=== PATIENT | female | born 1960 | race Caucasian/White ===

== ENCOUNTER 2017-02-01 19:39 | Emergency (ER) | payer BC ==
[2017-02-01] MEDS ORDERED: BABY ASPIRIN 81 MG CHEW PO ONE (19:52)
[2017-02-01] MEDS ORDERED: Nitrostat 0.4 MG (ED) SL ONE ×2 (19:52→20:01)
[2017-02-01 20:00] LABS: BASOPHIL % 0.9 % (0.0-0.4); Eosinophil % 1.2 % (0.00-5.0); Granulocytes % 53.6 % (36.0-66.0); Lymphocytes % 38.3 % (24.0-44.0); Mean Cell Volume 89.9 fl (78-100); Mean Corpuscular Hemoglobin 29.8 pg (26-32); Mean Platelet Volume 10.4 fl (6-9.5); Platelet Count 397 K/mm3 (150-450); Red Blood Count 5.03 M/mm3 (4.1-5.4); Red Cell Distribution Width 12.8 % (11.5-14.0); White Blood Count 10.5 K/mm3 (4.0-10.5)
[2017-02-01] MEDS ORDERED: Sodium Chloride 0.9% 1000 ML 1,000 ML IV SCH (20:00)
--- NOTE | 2017-02-01 20:00 | ERPHSYRPT ---
- History of Present Illness Time Seen by Provider: 02/01/17 19:56 Historian: patient Exam Limitations: no limitations Patient Subjective Stated Complaint: Pt states for the last couple of days she has had a "flutter in her chest" and chest pain. The "flutter" happens randomly and when it happens she gets extremely dizzy and feels like she is going to pass out. Triage Nursing Assessment: Pt alert and oriented x3. skin pink warm and dry. afebrile. pt appears to be anxious. irregular heart beats noted on cardiac technologist Physician History: pt is 56 year old female with no known heart dx CP and dizziness past few days with PVCs and sinus pauses on monitor, no DM , no other symptoms nop fever, no cough no prior PE oe DVT; Tx cholesterol , now has elevated BP; Timing/Duration: day(s) Activities at Onset: none Quality: fullness, pressure Location: substernal Chest Pain Radiation: no radiation Severity of Pain-Max: moderate Severity of Pain-Current: moderate Modifying Factors: Improves With: nothing Associated Symptoms: nausea, palpitations, other (dizziness) Prior Chest Pain/Cardiac Workup: no prior chest pain, no prior cardiac workup Nitro Today/Relief: 0.4 mg x 1, provided by ED Aspirin Treatment Today: 325 mg x 1, provided by ED Allergies/Adverse Reactions: codeine Allergy (Verified 02/01/17 19:40) Swelling Home Medications: Esomeprazole Magnesium [Nexium] 40 mg PO DAILY 05/19/14 [History] Simvastatin [Zocor] 10 mg PO DAILY 05/19/14 [History] Fenofibrate,Micronized 145 mg* [Tricor 145 MG] 145 mg PO DAILY 02/01/17 [ History] Fish Oil/Dha/Epa [Fish Oil 1,200 mg Fish Oil] 1 each PO QAM 02/01/17 [History] Hx Tetanus, Diphtheria Vaccination/Date Given: Yes Hx Influenza Vaccination/Date Given: Yes Hx Pneumococcal Vaccination/Date Given: No Immunizations Up to Date: Yes - Past Medical History Pertinent Past Medical History: No Neurological History: No Pertinent History Cardiac History: High Cholesterol Respiratory History: No Pertinent History Musculoskeletal History: No Pertinent History GI Medical History: GERD History: No Pertinent History - Past Surgical History Past Surgical History: Yes Gastrointestinal: Appendectomy, Cholecystectomy Female Surgical History: Hysterectomy - Social History Smoking Status: Current every day smoker Exposure to second hand smoke: No Drug Use: none Patient Lives Alone: No - Nursing Vital Signs Temperature: 98.1 F Temperature Source: Oral Pulse Rate: 84 Respiratory Rate: 18 Pain Intensity: 3 - Physical Exam SpO2: 97 Oxygen Delivery: Room Air - Course Nursing assessment & vital signs reviewed: Yes EKG Interpreted by Me: Sinus Rhythm, NORMAL AXIS, Non-specific ST Changes, Other (pauses and PVCs on monitor) - Radiology Exams Chest X-ray Interpretation: Reviewed by me, Other (hazy left heart border) Ordered Tests: Active Orders 24 hr Category Date Time Status Graining Machine Operator STAT Care 02/01/17 19:52 Active Clean Catch Urine Specimen STAT Care 02/01/17 19:52 Active EKG-ER Only STAT Care 02/01/17 19:52 Active IV Insertion STAT Care 02/01/17 19:52 Active Pulse Oximetry (ED) STAT Care 02/01/17 19:52 Active CHEST 1 VIEW (PORTABLE) Stat Exams 02/01/17 19:53 Taken CBC W DIFF Stat Lab 02/01/17 19:45 Completed CK-Creatinine Phosphokinase Stat Lab 02/01/17 19:45 Completed CMP Stat Lab 02/01/17 19:45 Completed D-DIMER QUANTITATION Stat Lab 02/01/17 19:45 Completed Lactic Acid Urgent Lab 02/01/17 19:52 Completed TROPONIN Q3H Lab 02/01/17 19:45 Completed TROPONIN Q3H Lab 02/01/17 23:00 Ordered TROPONIN Q3H Lab 02/02/17 02:00 Ordered TROPONIN Q3H Lab 02/02/17 05:00 Ordered TROPONIN Q3H Lab 02/02/17 08:00 Ordered UA W/ MICROSCOPIC Stat Lab 02/01/17 19:53 Completed Medication Summary Generic Name Dose Route Start Last Admin Trade Name Freq PRN Reason Stop Dose Admin Sodium Chloride 1,000 mls @ 100 mls/hr 02/01/17 20:00 02/01/17 20:06 Sodium Chloride 0.9% 1000 Ml IV 03/03/17 19:59 100 mls/hr .Q10H EDD Administration Potassium Chloride 100 mls @ 50 mls/hr 02/01/17 21:26 02/01/17 21:31 Potassium Chloride 20 Meq In Water 100ml IV 02/01/17 23:25 50 mls/hr STAT ONE Administration Discontinued Medications Generic Name Dose Route Start Last Admin Trade Name Fernando PRN Reason Stop Dose Admin Aspirin 324 mg 02/01/17 19:52 02/01/17 20:06 Baby Aspirin 81 Mg Chew PO 02/01/17 19:53 324 mg STAT ONE Administration Aspirin Confirm 02/01/17 20:01 Baby Aspirin 81 Mg Chew Administered 02/01/17 20:02 Dose 324 mg .ROUTE .STK-MED ONE Sodium Chloride Confirm 02/01/17 20:01 Sodium Chloride 0.9% 1000 Ml Administered 02/01/17 20:02 Dose 1,000 mls @ ud .ROUTE .STK-MED ONE Potassium Chloride Confirm 02/01/17 21:29 Potassium Chloride 20 Meq In Water 100ml Administered 02/01/17 21:30 Dose 100 mls @ ud IV .STK-MED ONE Nitroglycerin 0.4 mg 02/01/17 19:52 02/01/17 20:06 Nitrostat 0.4 Mg (Ed) SL 02/01/17 19:53 0.4 mg STAT ONE Administration Nitroglycerin Confirm 02/01/17 20:01 Nitrostat 0.4 Mg (Ed) Administered 02/01/17 20:02 Dose 0.4 mg SL .STK-MED ONE Lab/Rad Data: Laboratory Result Diagrams 02/01/17 19:45 02/01/17 19:45 Laboratory Results 02/01/17 02/01/17 02/01/17 Range/Units 19:53 19:52 19:45 WBC (4.0-10.5) K/mm3 RBC (4.1-5.4) M/mm3 Hgb (12.0-16.0) gm/dl Hct (35-47) % MCV (78-100) fl MCH (26-32) pg MCHC (32-36) g/dl RDW (11.5-14.0) % Plt Count (150-450) K/mm3 MPV (6-9.5) fl Gran % (36.0-66.0) % Lymphocytes % (24.0-44.0) % Monocytes % (0.0-12.0) % Eosinophils % (0.00-5.0) % Basophils % (0.0-0.4) % Basophils # (0-0.4) D-Dimer (0.00-0.49) mg/L Sodium (136-145) mEq/L Potassium (3.5-5.1) mEq/L Chloride (98-107) mEq/L Carbon Dioxide (21-32) mEq/L Anion Gap (5-15) MEQ/L BUN (9-20) mg/dL Creatinine (0.55-1.30) mg/dl Estimated GFR ML/MIN Glucose (70-110) MG/DL Lactic Acid 1.2 (0.4-2.0) Calcium (8.5-10.1) mg/dL Total Bilirubin (0.2-1.0) mg/dL AST (15-37) U/L ALT (12-78) U/L Alkaline Phosphatase (46-116) U/L Creatine Kinase (26-192) U/L Troponin I < 0.017 (0.000-0.056) ng/ml Serum Total Protein (6.4-8.2) gm/dL Albumin (3.4-5.0) g/dL Ur Collection Type CLEAN CATCH Urine Color YELLOW (YELLOW) Urine Appearance CLEAR (CLEAR) Urine pH 6.5 (5-6) Ur Specific Dixon 1.010 (1.005-1.025) Urine Protein NEGATIVE (Negative) Urine Glucose (UA) NEGATIVE (NEGATIVE) mg/dL Urine Ketones NEGATIVE (NEGATIVE) Urine Nitrite NEGATIVE (NEGATIVE) Urine Bilirubin NEGATIVE (NEGATIVE) Urine Urobilinogen 0.2 (0-1) mg/dL Urine WBC (Auto) NEGATIVE (NEGATIVE) Urine RBC (Auto) TRACE NON-HEM (0-5) Tirso/ul Urine Microscopic RBC 0-2 (0-2) /HPF Ur Epithelial Cells RARE (FEW) /HPF Specimen Received 02/01/1702/01/17 02/01/17 02/01/17 Range/Units 19:45 19:45 19:45 WBC 10.5 (4.0-10.5) K/mm3 RBC 5.03 (4.1-5.4) M/mm3 Hgb 15.0 (12.0-16.0) gm/dl Hct 45.2 (35-47) % MCV 89.9 (78-100) fl MCH 29.8 (26-32) pg MCHC 33.2 (32-36) g/dl RDW 12.8 (11.5-14.0) % Plt Count 397 (150-450) K/mm3 MPV 10.4 H (6-9.5) fl Gran % 53.6 (36.0-66.0) % Lymphocytes % 38.3 (24.0-44.0) % Monocytes % 6.0 (0.0-12.0) % Eosinophils % 1.2 (0.00-5.0) % Basophils % 0.9 (0.0-0.4) % Basophils # 0.09 (0-0.4) D-Dimer 0.244 (0.00-0.49) mg/L Sodium 142 (136-145) mEq/L Potassium 3.4 L (3.5-5.1) mEq/L Chloride 105 (98-107) mEq/L Carbon Dioxide 26.2 (21-32) mEq/L Anion Gap 13.9 (5-15) MEQ/L BUN 11 (9-20) mg/dL Creatinine 0.86 (0.55-1.30) mg/dl Estimated GFR > 60 ML/MIN Glucose 115 H (70-110) MG/DL Lactic Acid (0.4-2.0) Calcium 9.3 (8.5-10.1) mg/dL Total Bilirubin 0.3 (0.2-1.0) mg/dL AST 23 (15-37) U/L ALT 30 (12-78) U/L Alkaline Phosphatase 83 (46-116) U/L Creatine Kinase 64 (26-192) U/L Troponin I (0.000-0.056) ng/ml Serum Total Protein 7.9 (6.4-8.2) gm/dL Albumin 4.3 (3.4-5.0) g/dL Ur Collection Type Urine Color (YELLOW) Urine Appearance (CLEAR) Urine pH (5-6) Ur Specific Dixon (1.005-1.025) Urine Protein (Negative) Urine Glucose (UA) (NEGATIVE) mg/dL Urine Ketones (NEGATIVE) Urine Nitrite (NEGATIVE) Urine Bilirubin (NEGATIVE) Urine Urobilinogen (0-1) mg/dL Urine WBC (Auto) (NEGATIVE) Urine RBC (Auto) (0-5) Tirso/ul Urine Microscopic RBC (0-2) /HPF Ur Epithelial Cells (FEW) /HPF Specimen Received - Progress Progress: improved, re-examined Air Movement: good Progress Note: 02/01/17 21:03 BP improve to normal ranges after NTG , relief now except when PVCs hit and then momentary CP; discussed with hospitalist Noreen Byers at [facility] for transfer,and they defferred to Dr. Abdiel Walker as that is the pts regualr ; they are calling ; ; 02/01/17 21:[address] Art and they will accept at [facility] and family and pt agree for transfer - further cardiac workup Blood Culture(s) Obtained: No Antibiotics given: No Discussed with DrMaria A: Other (Dr. Art) Will see patient in: hospital (full admit) Counseled pt/family regarding: lab results, diagnosis, need for follow-up, rad results - Departure Time of Disposition: 21:44 Departure Disposition: Transfer Clinical Impression: Syncope, near, Chest pain of uncertain etiology, PVC (premature ventricular contraction), Atrioventricular conduction disorder, mild hypokalemia Condition: Good Critical Care Time: No Referrals: MENDEL KANG [Primary Care Provider] -
[2017-02-01] MEDS ORDERED: Sodium Chloride 0.9% 1000 ML 1,000 ML ONE (20:01)
[2017-02-01] MEDS ORDERED: BABY ASPIRIN 81 MG CHEW ONE (20:01)
[2017-02-01 20:16] LABS: ALBUMIN 4.3 g/dL (3.4-5.0); ALKALINE PHOSPHATASE 83 U/L (46-116); ANION GAP 13.9 MEQ/L (5-15); BILIRUBIN,TOTAL 0.3 mg/dL (0.2-1.0); BLOOD UREA NITROGEN 11 mg/dL (9-20); CHLORIDE 105 mEq/L (98-107); Carbon Dioxide 26.2 mEq/L (21-32); Glucose 115 MG/DL (70-110); Potassium 3.4 mEq/L (3.5-5.1); SGOT/AST 23 U/L (15-37); SGPT/ALT 30 U/L (12-78); SODIUM 142 mEq/L (136-145); Total Protein 7.9 gm/dL (6.4-8.2)
[2017-02-01 21:04] LABS: Collection Type CLEAN CATCH
[2017-02-01 21:05] LABS: COMPLETE URINE MICROSCOPIC? YES; Epithelial Cells RARE /HPF (FEW); Ph 6.5 (5-6)
[2017-02-01] MEDS ORDERED: POTASSIUM CHLORIDE 20 mEq IN WATER 100ML 100 ML IV ONE ×2 (21:26→21:29)
[2017-02-01 21:44] VITALS: O2SAT 97
[2017-02-01] MEDS ORDERED: Magnesium 1 Gm / 100 Ml D5W*** 100 ML IV ONE ×2 (21:56→22:01)
[2017-02-01 22:21] VITALS: BP 132/79; PULSE 66
--- NOTE | 2017-02-02 08:52 | XRAY ---
Indication: Chest pain. Comparison: January 30, 2012. Portable chest remains hyperinflated and clear. Heart and mediastinal structures are stable and within normal limits for AP portable technique. Bony thorax intact. Impression: Stable nonacute hyperinflated chest.
== END 2017-02-01 22:45 | disposition short-term general hospital (02) ==
LOC: ED 19:39
DX: R07.9 Chest pain, unspecified (principal); I49.3 Ventricular premature depolarization; I45.89 Other specified conduction disorders; E87.6 Hypokalemia; E83.42 Hypomagnesemia; R11.0 Nausea; R00.2 Palpitations
CPT/HCPCS: 36000; 36415; 71010; 80053; 81000; 82550; 83605; 83735; 84484; 85025; 85379; 93005; 93041; 96360; 96361; 96365; 96366; 96367; 99285; J3475; J3480; A9270-GY

== ENCOUNTER 2023-05-12 09:28 | Observation (INO) | payer BC ==
[2023-05-12] MEDS ORDERED: Sodium Chloride 0.9% 1000 ML 1,000 ML IV SCH (09:45)
[2023-05-12] MEDS ORDERED: TORAdol 30 mg Injection IV ONE (09:45)
[2023-05-12] MEDS ORDERED: TORAdol 30 mg Injection ONE (09:57)
--- NOTE | 2023-05-12 10:12 | XRAY ---
Indication: Abdomen and back pain. Multiple contiguous axial images obtained through the abdomen and pelvis without contrast. Comparison: April 17, 2020 Lung bases remain clear. Heart not enlarged. Noncontrasted stomach and bowel loops are nonobstructed. There remains mild scattered descending and sigmoid diverticulosis. Mid to distal sigmoid demonstrates recurrent moderate diverticulitis. Tiny free fluid but no walled off fluid collection or free air. Stable small left adrenal adenoma, splenic calcified granulomas, cholecystectomy, appendectomy, and hysterectomy. Remaining liver, pancreas, spleen, adrenal glands, kidneys, ureters, and bladder are unremarkable for noncontrast exam. Again moderate scattered aortoiliac calcifications without AAA. Osseous structures intact again with mild degenerative changes throughout the spine. Impression: 1. Again colonic diverticulosis with recurrent moderate acute sigmoid diverticulitis. No complications. 2. Stable benign left adrenal adenoma, splenic calcified granulomas, arteriosclerotic disease, and chronic bony findings.
[2023-05-12 10:17] LABS: BASOPHIL % 0.4 % (0.0-0.4); Basophil (Absolute #) 0.06 x10^3/uL (0-0.4); Eosinophil % 0.3 % (0.00-5.0); Eosinophil (Absolute #) 0.04 x10^3/uL (0-0.5); Hematocrit 42.7 % (35-47); IMMATURE GRAN # 0.05 x10^3u/L (0.00-0.03); IMMATURE GRAN % 0.3 % (0.00-0.4); Lymphocyte (Absolute #) 1.25 x10^3/uL (1.0-4.6); Lymphocytes % 8.6 % (24.0-44.0); Mean Cell Volume 90.9 fL (78-100); Mean Corpuscular Hemoglobin 29.8 pg (26-32); Mean Corpuscular Hgb Concent. 32.8 g/dL (32-36); Mean Platelet Volume 9.9 fL (7.5-11.0); Monocyte (Absolute #) 0.72 x10^3/uL (0.0-1.3); Neutrophil % 85.4 % (36.0-66.0); Platelet Count 357 x10^3/uL (150-450); Red Cell Distribution Width 12.8 % (11.5-14.0); White Blood Count 14.5 x10^3/uL (4.0-10.5)
[2023-05-12] MEDS ORDERED: SUBLIMAZE 100 MCG/2 ML IV ONE (10:31)
[2023-05-12] MEDS ORDERED: SUBLIMAZE 100 MCG/2 ML ONE (10:32)
[2023-05-12 10:33] LABS: ISTAT BUN 9 mg/dL (8-26); ISTAT CL 102 mmol/L (98-109); ISTAT CO2 25 mmol/L (24-29); ISTAT CREA 0.6 mg/dL (0.6-1.3); ISTAT GLUC 125 mg/dL (70-105); ISTAT K 3.9 mmol/L (3.5-4.9); ISTAT NA 139 mmol/L (138-146); ISTAT iCA 1.18 mmol/L (1.12-1.32)
--- NOTE | 2023-05-12 10:37 | ERPHSYRPT ---
- History of Present Illness Time Seen by Provider: 05/12/23 09:45 Source: patient Exam Limitations: no limitations Patient Subjective Stated Complaint: "I woke up yesterday with this terrible pain, it's around my bladder and goes to both sides of my lower back. I don't kn ow if it's bladder spasms or what." Triage Nursing Assessment: Pt presents to ER complaints of lower mid abdominal pains that began yesterday morning upon awaking. Pt is alert and oriented x 3. Skin is pink and diaphoretic. Pt is gaurding in pain. Rates pain 10/10 pain. States pain is constant but sharp/stabbing pains are intermittent. Pt states when using restroom it seems to increase pain. Denies constipation. Respirations are unlabored at this time. Physician History: Patient is a 62-year-old female presents to our ED as a referral from [facility] for evaluation of lower abdominal/pelvic pain. Patient states her symptoms started yesterday morning after awakening from her sleep. Patient describes the pain as a sharp sensation that is constant with intermittent bouts of spikes in pain level. No trauma. No fever. Pain tends to radiate posteriorly up her back near her flanks. Patient denies a history of the same. Patient states she had a urinalysis performed at the [facility]. It was reported as negative. Patient voices no other complaints or concerns at this time. Portions of this note were created with voice recognition technology. There may be grammatical, spelling, punctuation or sound alike errors Timing/Duration: yesterday Severity: severe Modifying Factors: Improves With: nothing Associated Symptoms: other (Patient became diaphoretic due to pain while at the [facility]. Otherwise no other associated symptomology expressed to our staff) Allergies/Adverse Reactions: codeine Allergy (Verified 05/12/23 09:45) Swelling Home Medications: Cetirizine HCl 10 mg PO DAILY 05/12/23 [History] Dapagliflozin Propanediol [Farxiga] 10 mg PO DAILY 05/12/23 [History] Losartan/Hydrochlorothiazide [Losartan-Hctz 50-12.5 mg Tab] 50 mg PO DAILY 05/12/23 [History] Metoprolol Succinate 50 mg [Toprol Xl 50 MG] 50 mg PO DAILY 05/12/23 [History] Omeprazole 40 mg PO DAILY 05/12/23 [History] Rosuvastatin Calcium 10 mg PO DAILY 05/12/23 [History] Tirzepatide [Mounjaro] 2.5 mg SQ WEEKLY 05/12/23 [History] Hx Tetanus, Diphtheria Vaccination/Date Given: Yes Hx Influenza Vaccination/Date Given: Yes Hx Pneumococcal Vaccination/Date Given: No Immunizations Up to Date: Yes Travel Risk - International Travel Have you traveled outside of the country in past 3 weeks: No - Coronavirus Screening Are you exhibiting any of the following symptoms?: No - Vaccine Status Have you recieved a Covid-19 vaccination: Yes Patient Relations Manager: Moderna - Vaccination Dates Date of 2cond Vaccination (if applicable): unknown - Review of Systems Constitutional: No Symptoms, No Fever, No Chills Eyes: No Symptoms Ears, Nose, & Throat: No Symptoms Respiratory: No Symptoms, No Cough, No Dyspnea Cardiac: No Symptoms, No Chest Pain, No Edema, No Syncope Abdominal/Gastrointestinal: No Symptoms, No Abdominal Pain, No Nausea, No Vomiting, No Diarrhea Genitourinary Symptoms: No Symptoms, No Dysuria Musculoskeletal: No Symptoms, No Back Pain, No Neck Pain Skin: No Symptoms, No Rash Neurological: No Symptoms, No Dizziness, No Focal Weakness, No Sensory Changes Psychological: No Symptoms Endocrine: No Symptoms Hematologic/Lymphatic: No Symptoms Immunological/Allergic: No Symptoms All Other Systems: Reviewed and Negative - Past Medical History Pertinent Past Medical History: No Neurological History: No Pertinent History Cardiac History: High Cholesterol Respiratory History: No Pertinent History Endocrine Medical History: Diabetes Type II Musculoskeletal History: No Pertinent History GI Medical History: GERD History: No Pertinent History - Past Surgical History Past Surgical History: Yes Gastrointestinal: Appendectomy, Cholecystectomy Female Surgical History: Hysterectomy - Social History Smoking Status: Current every day smoker Exposure to second hand smoke: No Drug Use: none Patient Lives Alone: No - Nursing Vital Signs Nursing Vital Signs: Initial Vital Signs Temperature 97.8 F 05/12/23 09:32 Pulse Rate 81 05/12/23 09:32 Respiratory Rate 20 05/12/23 09:32 Blood Pressure 117/92 05/12/23 09:32 O2 Sat by Pulse Oximetry 95 05/12/23 09:32 Pain Scale Pain Intensity 10 - Physical Exam General Appearance: no apparent distress, alert Eye Exam: PERRL/EOMI, eyes nml inspection Ears, Nose, Throat Exam: normal ENT inspection, TMs normal, pharynx normal, moist mucous membranes Neck Exam: normal inspection, non-tender, supple, full range of motion Respiratory Exam: normal breath sounds, lungs clear, airway intact, No respiratory distress Cardiovascular Exam: regular rate/rhythm, normal heart sounds, normal peripheral pulses Gastrointestinal/Abdomen Exam: soft, normal bowel sounds, No tenderness, No mass Back Exam: normal inspection, normal range of motion, No CVA tenderness, No vertebral tenderness Extremity Exam: normal inspection, normal range of motion, pelvis stable Neurologic Exam: alert, oriented x 3, cooperative, normal mood/affect, nml cer ebellar function, nml station & gait, sensation nml, No motor deficits Skin Exam: normal color, warm, dry, No rash Lymphatic Exam: No adenopathy SpO2 Interpretation: normal SpO2: 96 O2 Delivery: Room Air - Course Nursing assessment & vital signs reviewed: Yes - CT Exams Abdomen/Pelvis CT Interpretation: Tele-radiologist Report (Left adrenal adenoma sigmoid diverticulitis colonic diverticulosis splenic granuloma spine arthritis) Ordered Tests: Active Orders 24 hr Category Date Time Status IV Insertion STAT Care 05/12/23 09:45 Active ABDOMEN AND PELVIS W/0 CONTRAS [CT] Stat Exams 05/12/23 09:46 Completed ALBUMIN Stat Lab 05/12/23 10:10 Received ALKALINE PHOSPHATASE Stat Lab 05/12/23 10:10 Received BILIRUBIN,TOTAL Stat Lab 05/12/23 10:10 Received CBC W DIFF Stat Lab 05/12/23 10:10 Completed SGOT/AST Stat Lab 05/12/23 10:10 Received SGPT/ALT Stat Lab 05/12/23 10:10 Received TROPONIN Q4H Lab 05/12/23 10:10 Received TROPONIN Q4H Lab 05/12/23 13:45 Ordered TROPONIN Q4H Lab 05/12/23 17:45 Ordered Total Protein Stat Lab 05/12/23 10:10 Received Medication Summary Generic Name Dose Route Start Last Admin Trade Name Freq PRN Reason Stop Dose Admin Fentanyl Citrate 25 mcg 05/12/23 10:31 Fentanyl Citrate 100 Mcg/2 Ml* Vial IV 05/12/23 10:32 STAT ONE Sodium Chloride 1,000 mls @ 100 mls/hr 05/12/23 09:45 05/12/23 10:04 Sodium Chloride 0.9% 1000 Ml IV 06/11/23 09:44 100 mls/hr .Q10H EDD Administration Discontinued Medications Generic Name Dose Route Start Last Admin Trade Name Fernando PRN Reason Stop Dose Admin Ketorolac Tromethamine 30 mg 05/12/23 09:45 05/12/23 10:05 Ketorolac Tromethamine 30 Mg/Ml Inj IV 05/12/23 09:46 30 mg STAT ONE Administration Ketorolac Tromethamine Confirm 05/12/23 09:57 Ketorolac Tromethamine 30 Mg/Ml Inj Administered 05/12/23 09:58 Dose 30 mg .ROUTE .STK-MED ONE Lab/Rad Data: Laboratory Result Diagrams 05/12/23 10:10 Laboratory Results 05/12/23 Range/Units 10:10 WBC 14.5 H (4.0-10.5) x10^3/uL RBC 4.70 (4.1-5.4) x10^6/uL Hgb 14.0 (12.0-16.0) g/dL Hct 42.7 (35-47) % MCV 90.9 (78-100) fL MCH 29.8 (26-32) pg MCHC 32.8 (32-36) g/dL RDW 12.8 (11.5-14.0) % Plt Count 357 (150-450) x10^3/uL MPV 9.9 (7.5-11.0) fL Gran % 85.4 H (36.0-66.0) % Immature Gran % (Auto) 0.3 (0.00-0.4) % Nucleat RBC Rel Count 0.0 (0.00-0.1) % Eos # (Auto) 0.04 (0-0.5) x10^3/uL Immature Gran # (Auto) 0.05 H (0.00-0.03) x10^3u/L Absolute Lymphs (auto) 1.25 (1.0-4.6) x10^3/uL Absolute Monos (auto) 0.72 (0.0-1.3) x10^3/uL Absolute Nucleated RBC 0.00 (0.00-0.01) x10^3u/L Lymphocytes % 8.6 L (24.0-44.0) % Monocytes % 5.0 (0.0-12.0) % Eosinophils % 0.3 (0.00-5.0) % Basophils % 0.4 (0.0-0.4) % Absolute Granulocytes 12.40 H (1.4-6.9) x10^3/uL Basophils # 0.06 (0-0.4) x10^3/uL - Progress Progress: improved Progress Note: Patient is a 62-year-old female presents to our ED as a referral from [facility] for evaluation of lower abdominal/pelvic pain. Patient has a history of a hysterectomy appendectomy. Patient describes her pain as sharp constant with intermittent bouts of spikes of pain. Patient's physical exam shows an uncomfortable 62-year-old female sitting towards her left buttock for comfort. No abdominal tenderness observed on physical exam. CT scan reveals a sigmoid diverticulitis. Patient also has diverticulosis and a left adrenal adenoma with aortic calcifications spleen granuloma and spine arthritis. Patient received Toradol for pain control. Toradol did not help her pain significantly. Patient then received 25 mcg of fentanyl which resolved patient's pain. 05/12/23 10:[address] Alvarez who excepts admission to observation at 10:57 AM. Testing ordered includes CBC which reveals a leukocytosis of 14.5. CMP which essentially 9 contributory. Troponin negative. IV fluids initiated. Patient currently NPO. Patient received a dose of Toradol initially which did not help her pain. Patient then received 25 mcg of fentanyl which improved her pain. IV fluids infusing. Plan of care discussed with patient. She agrees to admission at [facility] for further evaluation and treatment. Portions of this note were created with voice recognition technology. There may be grammatical, spelling, punctuation or sound alike errors Complexity of problem addressed is moderate acute complicated with systemic manifestations. Complex of data reviewed and analyzed is extensive. Test ordered. Test reviewed and analyzed by Dr. Pitt. Clinical correlation made between the findings on the laboratory work-up and the findings on the CT abdomen pelvis. Patient has a leukocytosis which is in line with a moderate to advanced diverticulitis. Management discussed with Dr. Alvarez our hospitalist who excepts admission to observation. Risk of complication and or risk of morbidity/mortality patient management is high. Patient received IV controlled medication and will require hospitalizat ion for further evaluation and treatment as well as management of severe pain. Patient agrees to admission at [facility]. Vital stable. Plan of care established for shared decision making. Significant other at bedside. They voiced no other complaints or concerns at this time. Portions of this note were created with voice recognition technology. There may be grammatical, spelling, punctuation or sound alike errors 05/12/23 10:57 Counseled pt/family regarding: lab results, diagnosis, rad results - Departure Departure Disposition: Observation Clinical Impression: Sigmoid diverticulitis, Leukocytosis, Adenoma of left adrenal gland, Calcification of aorta, Diverticulosis, Spleen granuloma, Arthritis of spine Condition: Stable Critical Care Time: No Referrals: MENDEL KANG [Primary Care Provider] - Follow up/PCP as directed
[2023-05-12 10:43] LABS: ALBUMIN 4.2 g/dL (3.5-5.0); ALKALINE PHOSPHATASE 99 U/L (38-126); SGOT/AST 34 U/L (14-36); SGPT/ALT 35 U/L (0-35); TROPONIN < 0.012 ng/mL (0.000-0.034); Total Protein 7.4 g/dL (6.3-8.2)
[2023-05-12] MEDS ORDERED: PIPERACILLIN/TAZOBACTAM 3.375 GM in Sodium Chloride 100ML MINI-BAG PLUS 100 ML IV ONE (10:45)
[2023-05-12] MEDS ORDERED: PIPERACILLIN/TAZOBACTAM IV ONE (11:16)
[2023-05-12] MEDS ORDERED: Sodium Chloride 100ML MINI-BAG PLUS 100 ML IV ONE (11:17)
[2023-05-12] MEDS: Zofran 4 MG/2 ML VIAL IV PRN (12:06)
[2023-05-12] MEDS: Hydromorphone 1 mg/ml Injection IV PRN ×4 (12:06→21:37)
[2023-05-12] MEDS: Sodium Chloride 0.9% 1000 ML 1,000 ML IV SCH ×2 (12:11→21:38)
--- NOTE | 2023-05-12 15:25 | PCM.HP ---
History of Present Illness - Chief Complaint Chief Complaint: Diverticulitis, leukocytosis Date: 05/12/23 History of Present Illness: 62-year-old woman with a history of diabetes, hypertension, GERD, dyslipidemia, and former tobacco use, who presents with 3 days of progressive worsening of severe pelvic and lower abdominal pain. It started 3 days prior to admission, feeling like bladder spasm radiating to her lower back. She is out of the kidney stone or may be a bladder infection, but it was not relieved by cranberry or increased p.o. fluid intake. It progressively worsened to where even the impact of her foot while walking made the pain worse. Until last night, she was in such severe pain she was rolling on the floor. She initially went to urgent care, thinking it was UTI, but they told her her urine was negative and referred her to the ED. In the ED, she was found to have low sigmoid diverticulitis. Had some mild nausea earlier, currently controlled. Denies fevers, chills, abdominal pain, or dysuria. - Review of Systems Constitutional: No Fever, No Chills Eyes: No Symptoms Ears, Nose, & Throat: No Symptoms Respiratory: No Symptoms Cardiac: No Symptoms Abdominal/Gastrointestinal: Abdominal Pain (More pelvic pain than true abdominal pain), Nausea, No Vomiting, No Diarrhea, No Hematochezia, No Melena Genitourinary Symptoms: No Dysuria, No Frequency, No Hematuria Musculoskeletal: No Symptoms Skin: No Symptoms Neurological: No Symptoms Psychological: No Symptoms Medications & Allergies Home Medications: Home Medication List Cetirizine HCl 10 mg PO DAILY 05/12/23 [History Confirmed 05/12/23] Dapagliflozin Propanediol [Farxiga] 10 mg PO DAILY 05/12/23 [History Confirmed 05/12/23] Losartan/Hydrochlorothiazide [Losartan-Hctz 50-12.5 mg Tab] 50 mg PO DAILY 05/12/23 [History Confirmed 05/12/23] Metoprolol Succinate 50 mg [Toprol Xl 50 MG] 50 mg PO DAILY 05/12/23 [History Confirmed 05/12/23] Omeprazole 40 mg PO DAILY 05/12/23 [History Confirmed 05/12/23] Rosuvastatin Calcium 10 mg PO DAILY 05/12/23 [History Confirmed 05/12/23] Tirzepatide [Mounjaro] 2.5 mg SQ WEEKLY 05/12/23 [History Confirmed 05/12/23] Allergies/Adverse Reactions: Allergies Allergy/AdvReac Type Severity Reaction Status Date / Time codeine Allergy Swelling Verified 05/12/23 09:45 - Past Medical History Past Medical History: No Neurological History: No Pertinent History Cardiac History: High Cholesterol Respiratory History: No Pertinent History Endocrine Medical History: Diabetes Type II Musculoskelatal History: No Pertinent History GI Medical History: Diverticulitis, GERD History: No Pertinent History - Female History Are you now?: No - Past Surgical History Past Surgical History: Yes GI Surgical History: Appendectomy, Cholecystectomy Female Surgical History: Hysterectomy - Social History Smoking Status: Former smoker Exposure to second hand smoke: No Alcohol: Occasionally Drug Use: none Significant Family History: other (Father with partial colon resection secondary to diverticulitis) - Physical Exam Vital Signs: Vital Signs - 24 hr Temp Pulse Resp BP BP Pulse Ox 05/12/23 12:52 97 05/12/23 12:44 97.8 F 68 16 134/89 98 05/12/23 11:53 97.8 F 69 117/92 96 05/12/23 11:01 96 05/12/23 11:01 69 18 112/78 97 05/12/23 10:08 90 147/89 96 05/12/23 09:34 117/92 97 05/12/23 09:32 97.8 F 81 20 117/92 95 General Appearance: no apparent distress (Except when tries to set up over the midline. Feels better when shifting weight to one side or the other.) Neurologic Exam: alert, oriented x 3, normal mood/affect Eye Exam: eyes nml inspection Respiratory Exam: normal breath sounds, No lungs clear, No respiratory distress Cardiovascular Exam: regular rate/rhythm, No murmur, No edema Gastrointestinal/Abdomen Exam: soft, tenderness (Low pelvis in the midline), guarding Skin Exam: rash Results - Labs Lab/Micro Results: Lab Results-Last 24 Hours 05/12/23 05/12/23 Range/Units 10:10 10:10 WBC 14.5 H (4.0-10.5) x10^3/uL RBC 4.70 (4.1-5.4) x10^6/uL Hgb 14.0 (12.0-16.0) g/dL Hct 42.7 (35-47) % MCV 90.9 (78-100) fL MCH 29.8 (26-32) pg MCHC 32.8 (32-36) g/dL RDW 12.8 (11.5-14.0) % Plt Count 357 (150-450) x10^3/uL MPV 9.9 (7.5-11.0) fL Gran % 85.4 H (36.0-66.0) % Immature Gran % (Auto) 0.3 (0.00-0.4) % Nucleat RBC Rel Count 0.0 (0.00-0.1) % Eos # (Auto) 0.04 (0-0.5) x10^3/uL Immature Gran # (Auto) 0.05 H (0.00-0.03) x10^3u/L Absolute Lymphs (auto) 1.25 (1.0-4.6) x10^3/uL Absolute Monos (auto) 0.72 (0.0-1.3) x10^3/uL Absolute Nucleated RBC 0.00 (0.00-0.01) x10^3u/L Lymphocytes % 8.6 L (24.0-44.0) % Monocytes % 5.0 (0.0-12.0) % Eosinophils % 0.3 (0.00-5.0) % Basophils % 0.4 (0.0-0.4) % Absolute Granulocytes 12.40 H (1.4-6.9) x10^3/uL Basophils # 0.06 (0-0.4) x10^3/uL Sodium Direct 139 (138-146) mmol/L Potassium 3.9 (3.5-4.9) mmol/L Chloride 102 (98-109) mmol/L Carbon Dioxide 25 (24-29) mmol/L Venous BUN 9 (8-26) mg/dL Creatinine 0.6 (0.6-1.3) mg/dL Glucose 125 H (70-105) mg/dL Ionized Calcium 1.18 (1.12-1.32) mmol/L Total Bilirubin 0.70 (0.2-1.3) mg/dL AST 34 (14-36) U/L ALT 35 (0-35) U/L Alkaline Phosphatase 99 (38-126) U/L Troponin I < 0.012 (0.000-0.034) ng/mL Serum Total Protein 7.4 (6.3-8.2) g/dL Albumin 4.2 (3.5-5.0) g/dL - Radiology Impressions Radiology Exams & Impressions: Radiology Procedures Category Date Time Status ABDOMEN AND PELVIS W/0 CONTRAS [CT] Stat Exams 05/12/23 09:[address] abdomen and pelvis: Mid to distal sigmoid with recurrent moderate diverticulitis. Mild scattered descending and sigmoid diverticulosis. Tiny free fluid but no walled off fluid collection or free air. Assessment/Plan (1) Sigmoid diverticulitis Current Visit: Yes Status: Acute Assessment & Plan: 62-year-old woman with a history of diabetes, hypertension, GERD, and former tobacco abuse, who presents with diverticulitis. ## Diverticulitis uncomplicated, but causing severe pain and leukocytosis. Her atypical symptoms of pelvic pain and pain with bladder fullness are due to the distal sigmoid location of her diverticulitis. Currently controlled with pain and nausea medications. Start Dilaudid 0.5 mg IV q.3 hours PRN pain PRN Zofran Zosyn 3.375 g IV q.6 hours N.p.o. Advance diet to clears once pain begins to improve. ## Hypertension blood pressure controlled. Continue home losartan 50, HCTZ 12.5, Toprol-XL 50 ## GERD Continue home Protonix CODE STATUS: Full code Prophylaxis: Lovenox Dispo: Plan for home once pain is controlled and can advance diet Entirety of encounter took place via telemedicine. Patient consented to telemedicine. Code(s): K57.32 - DVTRCLI OF LG INT W/O PERFORATION OR ABSCESS W/O BLEEDING Telemedicine Encounter - Telemedicine Encounter Telemedicine Encounter: The entirety of this encounter was performed via Telemedicine"
[2023-05-12] MEDS: PIPERACILLIN/TAZOBACTAM 3.375 GM in Sodium Chloride 100ML MINI-BAG PLUS 100 ML IV SCH ×2 (17:18→23:28)
[2023-05-12] MEDS: TYLENOL 325 MG PO PRN (22:24)
[2023-05-13] MEDS: Hydromorphone 1 mg/ml Injection IV PRN (05:19)
[2023-05-13] MEDS: PIPERACILLIN/TAZOBACTAM 3.375 GM in Sodium Chloride 100ML MINI-BAG PLUS 100 ML IV SCH ×4 (05:20→23:16)
[2023-05-13 05:21] LABS: Absolute Neutrophil Ct (ANC) 4.89 x10^3/uL (1.4-6.9); BASOPHIL % 0.8 % (0.0-0.4); Basophil (Absolute #) 0.06 x10^3/uL (0-0.4); Eosinophil % 1.3 % (0.00-5.0); Hematocrit 38.6 % (35-47); Hemoglobin 12.1 g/dL (12.0-16.0); IMMATURE GRAN # 0.01 x10^3u/L (0.00-0.03); IMMATURE GRAN % 0.1 % (0.00-0.4); Lymphocytes % 25.4 % (24.0-44.0); Mean Cell Volume 93.7 fL (78-100); Mean Corpuscular Hemoglobin 29.4 pg (26-32); Mean Corpuscular Hgb Concent. 31.3 g/dL (32-36); Mean Platelet Volume 9.6 fL (7.5-11.0); Monocyte (Absolute #) 0.51 x10^3/uL (0.0-1.3); Monocytes % 6.8 % (0.0-12.0); Neutrophil % 65.6 % (36.0-66.0); Platelet Count 269 x10^3/uL (150-450); Red Blood Count 4.12 x10^6/uL (4.1-5.4); Red Cell Distribution Width 12.9 % (11.5-14.0); White Blood Count 7.5 x10^3/uL (4.0-10.5)
[2023-05-13] MEDS: Sodium Chloride 0.9% 1000 ML 1,000 ML IV SCH ×2 (05:22→17:47)
[2023-05-13 05:57] LABS: ALBUMIN 3.6 g/dL (3.5-5.0); ALKALINE PHOSPHATASE 145 U/L (38-126); ANION GAP 11.5 MEQ/L (5-15); BLOOD UREA NITROGEN 8 mg/dL (7-17); CHLORIDE 103 mmol/L (98-107); Calcium 8.2 mg/dL (8.4-10.2); Carbon Dioxide 29 mmol/L (22-30); Creatinine 1 0.57 mg/dL (0.52-1.04); EST GLOMERULAR FILTRATION RATE > 60.0 ML/MIN; Glucose 101 mg/dL (74-106); Potassium 3.7 mmol/L (3.5-5.1); SGOT/AST 444 U/L (14-36); SGPT/ALT 471 U/L (0-35); SODIUM 140 mmol/L (137-145); Total Protein 6.7 g/dL (6.3-8.2)
[2023-05-13] MEDS: ZOCOR 20MG PO SCH (08:47)
[2023-05-13] MEDS: hydroDIURIL 25 MG PO SCH (08:47)
[2023-05-13] MEDS: ENOXAPARIN SODIUM SQ SCH (08:48)
[2023-05-13] MEDS: CLARITIN 10 MG PO SCH (08:48)
[2023-05-13] MEDS: Protonix 40MG Tablet PO SCH (08:48)
[2023-05-13] MEDS: Cozaar 50 MG PO SCH (08:48)
[2023-05-13] MEDS ORDERED: Hydromorphone 1 mg/ml Injection IV PRN (09:07)
[2023-05-13] MEDS ORDERED: Hydromorphone 1 mg/ml Injection IV ONE (09:33)
[2023-05-13] MEDS: Toprol Xl 50 MG PO SCH (09:38)
[2023-05-13] MEDS ORDERED: TYLENOL EXTRA STRENGTH 500 MG PO STA (09:39)
[2023-05-13] MEDS ORDERED: NON-FORMULARY ITEM (Rosuvastatin Calcium [Rosuvastatin Calcium] 10 MG Tablet) PO SCH (10:00)
[2023-05-13] MEDS ORDERED: NON-FORMULARY ITEM (Cetirizine Hcl [Cetirizine Hcl] 10 MG Tablet) PO SCH (10:00)
[2023-05-13] MEDS ORDERED: NON-FORMULARY ITEM (Losartan/Hydrochlorothiazide [Losartan-Hctz 50-12.5 Mg Tab] 1 EACH Tab PO SCH (10:00)
[2023-05-13] MEDS ORDERED: NON-FORMULARY ITEM (Omeprazole [Omeprazole] 40 MG Capsule.Dr) PO SCH (10:00)
[2023-05-13] MEDS ORDERED: ULTRAM 50 MG PO PRN (10:02)
[2023-05-13] MEDS ORDERED: HYDROMORPHONE 30 MG/30 ML-NS PCA IV PRN (12:49)
--- NOTE | 2023-05-13 17:33 | PCM.NOTE ---
Date and Time: 05/13/231727 Subjective Assessment: Overnight, had a fever of 101.5, and had blood cultures drawn. Her pain has not been well controlled. She notes that she gets good relief initially, but then it wears off before the next dose is due at 3 hours. I attempted to increase to 1 mg IV q.3 hours PRN, but again would require more pain meds within 2 hours. Overall, does not feel like her pain is improving much at all. She does have some appetite today however. Objective Exam General Appearance: mild distress Neurologic Exam: alert, oriented x 3, normal mood/affect Skin Exam: No rash Eye Exam: eyes nml inspection Respiratory Exam: normal breath sounds, lungs clear, No respiratory distress Cardiovascular Exam: regular rate/rhythm, normal heart sounds, No murmur, No edema Gastrointestinal/Abdomen Exam: soft, No tenderness, No distention OBJECTIVE DATA Vital Signs: Vital Signs - 24 hr Temp Pulse Resp BP Pulse Ox 05/13/23 15:00 98.6 F 78 18 132/74 93 L 05/13/23 13:09 16 96 05/13/23 11:00 97.3 F 71 17 148/83 95 05/13/23 08:03 97 05/13/23 06:54 96.9 F 69 18 135/63 99 05/13/23 03:00 98.1 F 66 16 134/71 98 05/12/23 23:31 99.7 F 81 22 111/53 92 L 05/12/23 22:00 101.5 F 05/12/23 20:00 98.6 F 71 12 121/56 93 L 05/12/23 19:12 95 Pain Assessment - Last Documented Pain Intensity 2 Pain Scale Used 0-10 Pain Scale Intake and Output: Intake & Output 05/11/23 05/12/23 05/13/23 05/14/23 11:59 11:59 11:59 11:59 Intake Total 1947 0 Balance 1947 0 Weight 119 kg Lab Results: Lab Results-Last 24 Hours 05/13/23 05/13/23 Range/Units 05:15 05:15 WBC 7.5 (4.0-10.5) x10^3/uL RBC 4.12 (4.1-5.4) x10^6/uL Hgb 12.1 (12.0-16.0) g/dL Hct 38.6 (35-47) % MCV 93.7 (78-100) fL MCH 29.4 (26-32) pg MCHC 31.3 L (32-36) g/dL RDW 12.9 (11.5-14.0) % Plt Count 269 (150-450) x10^3/uL MPV 9.6 (7.5-11.0) fL Gran % 65.6 (36.0-66.0) % Immature Gran % (Auto) 0.1 (0.00-0.4) % Nucleat RBC Rel Count 0.0 (0.00-0.1) % Eos # (Auto) 0.10 (0-0.5) x10^3/uL Immature Gran # (Auto) 0.01 (0.00-0.03) x10^3u/L Absolute Lymphs (auto) 1.90 (1.0-4.6) x10^3/uL Absolute Monos (auto) 0.51 (0.0-1.3) x10^3/uL Absolute Nucleated RBC 0.00 (0.00-0.01) x10^3u/L Lymphocytes % 25.4 (24.0-44.0) % Monocytes % 6.8 (0.0-12.0) % Eosinophils % 1.3 (0.00-5.0) % Basophils % 0.8 (0.0-0.4) % Absolute Granulocytes 4.89 (1.4-6.9) x10^3/uL Basophils # 0.06 (0-0.4) x10^3/uL Sodium 140 (137-145) mmol/L Potassium 3.7 (3.5-5.1) mmol/L Chloride 103 (98-107) mmol/L Carbon Dioxide 29 (22-30) mmol/L Anion Gap 11.5 (5-15) MEQ/L BUN 8 (7-17) mg/dL Creatinine 0.57 (0.52-1.04) mg/dL Estimated GFR > 60.0 ML/MIN Glucose 101 (74-106) mg/dL Calcium 8.2 L (8.4-10.2) mg/dL Total Bilirubin 1.10 (0.2-1.3) mg/dL AST 444 H (14-36) U/L ALT 471 H (0-35) U/L Alkaline Phosphatase 145 H (38-126) U/L Serum Total Protein 6.7 (6.3-8.2) g/dL Albumin 3.6 (3.5-5.0) g/dL Radiology Exams: Radiology Procedures Category Date Time Status ABDOMEN AND PELVIS W/0 CONTRAS [CT] Stat Exams 05/12/23 09:46 Completed Multi-Disciplinary Progress Notes: Multi-Disciplinary Progress Notes 05/13/23 10:01 Case Management Note by Farzana Herring S/W PATIENT AND SPOUSE. SHE CONTINUES TO DENY ANY NEW NEEDS AT TIME OF DC. SHE PLANS TO RETURN HOME TO HER PLOF AT TIME OF DC. Initialized on 05/13/23 10:01 - END OF NOTE Assessment/Plan (1) Sigmoid diverticulitis Current Visit: Yes Status: Acute Assessment & Plan: 62-year-old woman with a history of diabetes, hypertension, GERD, and former tobacco abuse, who presents with diverticulitis. ## Diverticulitis uncomplicated, but causing severe pain and leukocytosis. Pain is uncontrolled today, although having better nausea, and her leukocytosis has resolved. 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 status If pain not improving by tomorrow, will repeat CT for evaluate for abscess or perforation ## Elevated transaminases most likely sequela of her diverticulitis. No documented hypotension to go along with sepsis, but did have worsening of her fever overnight. Continue IV fluids Repeat CMP in the morning ## Hypertension blood pressure controlled. Continue home losartan 50, HCTZ 12.5, Toprol-XL 50 ## GERD Continue home Protonix CODE STATUS: Full code Prophylaxis: Lovenox Dispo: Plan for home once pain is controlled and can advance diet Code(s): K57.32 - DVTRCLI OF LG INT W/O PERFORATION OR ABSCESS W/O BLEEDING Telemedicine Encounter - Telemedicine Encounter Telemedicine Encounter: The entirety of this encounter was performed via Telemedicine"
[2023-05-13] MEDS: Zofran 4 MG/2 ML VIAL IV PRN (18:07)
[2023-05-14] MEDS: TYLENOL 325 MG PO PRN (04:58)
[2023-05-14] MEDS: PIPERACILLIN/TAZOBACTAM 3.375 GM in Sodium Chloride 100ML MINI-BAG PLUS 100 ML IV SCH ×2 (05:00→11:10)
[2023-05-14] MEDS: Sodium Chloride 0.9% 1000 ML 1,000 ML IV SCH (05:01)
[2023-05-14 05:28] LABS: Absolute Neutrophil Ct (ANC) 5.19 x10^3/uL (1.4-6.9); Basophil (Absolute #) 0.08 x10^3/uL (0-0.4); Eosinophil % 2.9 % (0.00-5.0); Eosinophil (Absolute #) 0.24 x10^3/uL (0-0.5); Hemoglobin 12.9 g/dL (12.0-16.0); IMMATURE GRAN # 0.02 x10^3u/L (0.00-0.03); IMMATURE GRAN % 0.2 % (0.00-0.4); Lymphocytes % 27.7 % (24.0-44.0); Mean Cell Volume 92.2 fL (78-100); Mean Corpuscular Hemoglobin 29.7 pg (26-32); Mean Corpuscular Hgb Concent. 32.3 g/dL (32-36); Monocyte (Absolute #) 0.46 x10^3/uL (0.0-1.3); Monocytes % 5.5 % (0.0-12.0); Neutrophil % 62.7 % (36.0-66.0); Platelet Count 334 x10^3/uL (150-450); Red Blood Count 4.34 x10^6/uL (4.1-5.4); Red Cell Distribution Width 12.8 % (11.5-14.0); White Blood Count 8.3 x10^3/uL (4.0-10.5)
[2023-05-14 05:58] LABS: ALBUMIN 3.9 g/dL (3.5-5.0); ALKALINE PHOSPHATASE 187 U/L (38-126); BLOOD UREA NITROGEN 5 mg/dL (7-17); CHLORIDE 101 mmol/L (98-107); Calcium 8.9 mg/dL (8.4-10.2); Carbon Dioxide 30 mmol/L (22-30); Creatinine 1 0.51 mg/dL (0.52-1.04); EST GLOMERULAR FILTRATION RATE > 60.0 ML/MIN; Glucose 82 mg/dL (74-106); Potassium 3.7 mmol/L (3.5-5.1); SGOT/AST 176 U/L (14-36); SGPT/ALT 360 U/L (0-35); SODIUM 140 mmol/L (137-145); Total Protein 7.4 g/dL (6.3-8.2)
[2023-05-14 06:51] VITALS: O2SAT 97
[2023-05-14] MEDS: Protonix 40MG Tablet PO SCH (08:24)
[2023-05-14] MEDS: ZOCOR 20MG PO SCH (08:24)
[2023-05-14] MEDS: Cozaar 50 MG PO SCH (08:24)
[2023-05-14] MEDS: Toprol Xl 50 MG PO SCH (08:25)
[2023-05-14] MEDS: ENOXAPARIN SODIUM SQ SCH (08:25)
[2023-05-14] MEDS: CLARITIN 10 MG PO SCH (08:25)
[2023-05-14] MEDS: hydroDIURIL 25 MG PO SCH (08:27)
[2023-05-14 12:04] VITALS: BP 123/58; PULSE 130
--- NOTE | 2023-05-14 13:40 | PCM.DS ---
Discharge Summary Date of Admission: 05/12/23 11:40 Date of Discharge: 05/14/2023 Admitting Physician: JB ROLLINS MD Primary Care Provider: MENDEL KANG Allergies Allergies codeine Allergy (Verified 05/12/23 09:45) [facility] Hospital Summary - Hospital Course Hospital Course: 62-year-old woman with a history of diabetes, hypertension, GERD, dyslipidemia, who presented with 3 days of severe pelvic and lower abdominal pain, which she attributed to UTI, but was found to have low sigmoid diverticulitis without evidence of abscess or perforation. Initially presented with severe pain and leukocytosis. She was admitted under observation, placed on empiric Zosyn, IV fluids, and bowel rest. 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 She was tolerating p.o. diet and had a positive bowel movement without pain. She will be discharged to complete a 10- day course of ciprofloxacin and Flagyl. We will arrange for follow-up with PCP in 1 to 2 weeks - Vitals & Intake/Output Vital Signs: Vital Signs Temperature 97.3 F 05/14/23 12:00 Pulse Rate 130 H 05/14/23 12:00 Respiratory Rate 16 05/14/23 12:50 Blood Pressure 123/58 05/14/23 12:00 O2 Sat by Pulse Oximetry 97 05/14/23 12:00 Intake & Output: Intake & Output 05/12/23 05/13/23 05/14/23 05/15/23 11:59 11:59 11:59 11:59 Intake Total 1946 1501 480 Balance 1946 1501 480 Weight 119 kg - Lab Result Diagrams: 05/14/23 04:50 05/14/23 04:50 Lab Results-Last 24 Hrs: Lab Results-Last 24 Hours 05/14/23 05/14/23 Range/Units 04:50 04:50 WBC 8.3 (4.0-10.5) x10^3/uL RBC 4.34 (4.1-5.4) x10^6/uL Hgb 12.9 (12.0-16.0) g/dL Hct 40.0 (35-47) % MCV 92.2 (78-100) fL MCH 29.7 (26-32) pg MCHC 32.3 (32-36) g/dL RDW 12.8 (11.5-14.0) % Plt Count 334 (150-450) x10^3/uL MPV 10.0 (7.5-11.0) fL Gran % 62.7 (36.0-66.0) % Immature Gran % (Auto) 0.2 (0.00-0.4) % Nucleat RBC Rel Count 0.0 (0.00-0.1) % Eos # (Auto) 0.24 (0-0.5) x10^3/uL Immature Gran # (Auto) 0.02 (0.00-0.03) x10^3u/L Absolute Lymphs (auto) 2.30 (1.0-4.6) x10^3/uL Absolute Monos (auto) 0.46 (0.0-1.3) x10^3/uL Absolute Nucleated RBC 0.00 (0.00-0.01) x10^3u/L Lymphocytes % 27.7 (24.0-44.0) % Monocytes % 5.5 (0.0-12.0) % Eosinophils % 2.9 (0.00-5.0) % Basophils % 1.0 (0.0-0.4) % Absolute Granulocytes 5.19 (1.4-6.9) x10^3/uL Basophils # 0.08 (0-0.4) x10^3/uL Sodium 140 (137-145) mmol/L Potassium 3.7 (3.5-5.1) mmol/L Chloride 101 (98-107) mmol/L Carbon Dioxide 30 (22-30) mmol/L Anion Gap 12.0 (5-15) MEQ/L BUN 5 L (7-17) mg/dL Creatinine 0.51 L (0.52-1.04) mg/dL Estimated GFR > 60.0 ML/MIN Glucose 82 (74-106) mg/dL Calcium 8.9 (8.4-10.2) mg/dL Total Bilirubin 0.70 (0.2-1.3) mg/dL AST 176 H (14-36) U/L ALT 360 H (0-35) U/L Alkaline Phosphatase 187 H (38-126) U/L Serum Total Protein 7.4 (6.3-8.2) g/dL Albumin 3.9 (3.5-5.0) g/dL Micro Results-Entire Visit: Microbiology 05/12/23 22:23 Blood Culture - Preliminary Blood 05/12/23 22:23 Blood Culture - Preliminary Blood - Radiology Exams Ordered Rad Exams-Entire Visit: CT abdomen and pelvis: Mid to distal sigmoid colon with moderate diverticulitis. Tiny free fluid but no walled off fluid collection or free air. Discharge Exam General Appearance: no apparent distress Neurologic Exam: alert, oriented x 3, normal mood/affect Eye Exam: eyes nml inspection Respiratory Exam: normal breath sounds, lungs clear, No respiratory distress Cardiovascular Exam: regular rate/rhythm, normal heart sounds, No edema Gastrointestinal/Abdomen Exam: soft, normal bowel sounds, No tenderness, No distention Final Diagnosis/Problem List - Final Discharge Diagnosis/Problem (1) Sigmoid diverticulitis Current Visit: Yes Status: Acute Code(s): K57.32 - DVTRCLI OF LG INT W/O PERFORATION OR ABSCESS W/O BLEEDING Telemedicine Encounter - Telemedicine Encounter Telemedicine Encounter: The entirety of this encounter was performed via Telemedicine" - Discharge Discharge Date: 05/14/23 Disposition: Home, Self-Care Condition: Stable Prescriptions: New Ciprofloxacin HCl [Cipro] 500 mg PO BID #14 tablet metroNIDAZOLE [Metronidazole] 500 mg PO Q8H #21 tablet Continue Losartan/Hydrochlorothiazide [Losartan-Hctz 50-12.5 mg Tab] 50 mg PO DAILY Omeprazole 40 mg PO DAILY Metoprolol Succinate 50 mg [Toprol Xl 50 MG] 50 mg PO DAILY Tirzepatide [Mounjaro] 2.5 mg SQ WEEKLY Rosuvastatin Calcium 10 mg PO DAILY Cetirizine HCl 10 mg PO DAILY Dapagliflozin Propanediol [Farxiga] 10 mg PO DAILY Instructions: Diverticulitis (DC) Follow up with: TERRY BAUGH MD [ACTIVE STAFF] - 05/26/23 3:00 pm (at [facility] ) Forms: Discharge Instructions
== END 2023-05-14 14:07 | disposition home or self-care (01) ==
LOC: ED 09:28 → MED SURG 11:40
PROVIDERS: ADMIT Internal Medicine; ATTEND Internal Medicine
DX: K57.32 Diverticulitis of large intestine without perforation or abscess without bleeding (principal); D72.829 Elevated white blood cell count, unspecified; I10 Essential (primary) hypertension; E11.9 Type 2 diabetes mellitus without complications; E78.5 Hyperlipidemia, unspecified; K21.9 Gastro-esophageal reflux disease without esophagitis; Z79.899 Other long term (current) drug therapy; Z20.828 Contact with and (suspected) exposure to other viral communicable diseases; Z87.891 Personal history of nicotine dependence
CPT/HCPCS: 36000; 36415; 74176; 80047; 80053; 82040; 82247; 83521; 84075; 84450; 84460; 84484; 85025; 87040; 94762; 96360; 96361; 96365; 96374; 96375; 99284; Q3014; 93268; J1170; J1650; J1885; J2405; J3010; A9270-GY; G0378